=== PATIENT | male | born 1990 | race Two or more races ===

== ENCOUNTER 2019-01-27 06:30 | Emergency (ER) | payer SELFPAY ==
[~2019-01-27] VITALS: Ht 175.3 cm; Wt 74.8 kg
--- NOTE | 2019-01-27 06:32 | NUR ---
CALLED PT TO BE TRIAGED, NO ANSWER
--- NOTE | 2019-01-27 06:50 | NUR ---
BIBSELF C/O CUT ON R HAND FROM [employer]EN [employer] X[employer]IVE. UNK TDAP ALSO C/O L HAND PAIN S/P PUNCHED WALL X1 WEEK AGO, TO ER BED 2 ORDERS RECEIVED AND CARRIED OUT
[2019-01-27] MEDS ORDERED: TDAP [DIPH/PERTUSSIS/TET] 0.5 ML VIAL IM ONE ×2 (06:54→07:00)
--- NOTE | 2019-01-27 07:44 | NUR ---
PT. VERBALIZED UNDERSTANDING OF AFTERCARE INSTRUCTIONS.Patient discharged to home in stable condition. Written and verbal after care instructions given. Patient verbalizes understanding of instruction.
--- NOTE | 2019-01-27 07:44 | NUR ---
VELCRO VOLAR WRIST SPLINT APPLIED
[2019-01-27 07:46] VITALS: BP 134/71
== END 2019-01-27 07:47 | disposition home or self-care (01) ==
LOC: ER 06:30
DX: S62.512A Displaced fracture of proximal phalanx of left thumb, initial encounter for closed fracture (principal); S61.411A Laceration without foreign body of right hand, initial encounter; F17.200 Nicotine dependence, unspecified, uncomplicated; W25.XXXA Contact with sharp glass, initial encounter; Y93.89 Activity, other specified; Y92.89 Other specified places as the place of occurrence of the external cause; Y99.8 Other external cause status
CPT/HCPCS: 73130-TC; 90715

== ENCOUNTER 2025-02-21 22:47 | Emergency (ER) | payer OTHER ==
[~2025-02-21] VITALS: Ht 172.7 cm; Wt 83.9 kg
[2025-02-21 23:15] VITALS: TEMP 98.7
[2025-02-21] MEDS ORDERED: MORPHINE SULFATE INJ 4 MG/ML DISP.SYRIN ONE (23:43)
[2025-02-21] MEDS ORDERED: ONDANSETRON HCL/PF 4 MG/2 ML VIAL ONE (23:43)
[2025-02-21 23:44] LABS: PLATELET COUNT (AUTO) 212 K/uL (150-450); RED BLOOD CELL COUNT(AUTO) 4.92 MIL/uL (4.5-6.0); RED CELL DISTRIBUTION WIDTH 14.9 % (11.5-15.0); WHITE BLOOD COUNT (AUTO) 8.8 K/uL (4.3-11.0)
[2025-02-21] MEDS: MORPHINE SULFATE INJ 2 MG/ML DISP.SYRIN IV ONE (23:53)
[2025-02-21] MEDS: IV NS 0.9% 1,000 ML BAG IV ONE (23:53)
[2025-02-21] MEDS: ONDANSETRON HCL/PF 4 MG/2 ML VIAL IVP ONE (23:53)
[2025-02-21 23:54] LABS: CALCIUM, SERUM 9.0 mg/dL (8.5-10.1); CREATININE 1.1 mg/dL (0.6-1.3); SODIUM SERUM 137.0 mmol/L (136-145); UREA NITROGEN, BLOOD 20.0 mg/dL (7-18)
[2025-02-21 23:57] LABS: APPEARANCE,URINE CLEAR (CLEAR); BLOOD, URINE 2+ Ery/uL (NEGATIVE); LEUKOCYTE ESTERASE ,URINE NEGATIVE (NEGATIVE); NITRITE, URINE NEGATIVE (NEGATIVE); UGLUCOSE NEGATIVE (NEGATIVE)
[2025-02-22] LABS: ASPARTATE AMINOTRANSFERASE 32.0 U/L (15-37); TOTAL PROTEIN, SERUM 8.0 g/dL (6.4-8.2)
[2025-02-22 00:01] LABS: ADD URINE CULTURE NO; CALCIUM OXALATE CRYSTALS,UR Few /HPF (None Seen); SQUAMOUS EPITHELIAL CELL,UR Few /HPF (None Seen)
[2025-02-22 00:01] LABS: LACTIC ACID 1.4 mmol/L (0.4-2.0)
[2025-02-22] MEDS ORDERED: IOHEXOL-300 100 ML VIAL IV ONE (00:14)
[2025-02-22] MEDS ORDERED: IV NS 0.9% 250 ML IV ONE (00:15)
[2025-02-22] MEDS ORDERED: CT SWABBABLE VALVE TRANS SET 1 EA INFUS.SET MC ONE (00:15)
[2025-02-22] MEDS ORDERED: KETOROLAC TROMETHAMINE INJ 30 MG/ML VIAL ONE (00:48)
[2025-02-22] MEDS: KETOROLAC TROMETHAMINE INJ 30 MG/ML VIAL IV ONE (00:55)
[2025-02-22] MEDS ORDERED: SULI200T4 PO (01:41)
[2025-02-22] MEDS ORDERED: ONDA4TAB11 PO (01:41)
[2025-02-22 02:25] VITALS: BP 124/72; O2SAT 99
== END 2025-02-22 02:25 | disposition home or self-care (01) ==
LOC: ER 22:51
DX: R10.11 Right upper quadrant pain (principal); F17.200 Nicotine dependence, unspecified, uncomplicated; Z60.2 Problems related to living alone
CPT/HCPCS: 99285; 96374; 76705; 96361; 96375 ×2; 85025; 80048; 83605; 83690; 80076; 81001; 36415; 86803; 74177; J2270; J2405; J1885; J7050; Q9967